=== PATIENT | female | born 1970 | race Caucasian/White ===

== ENCOUNTER 2016-10-13 22:43 | Emergency (ER) | payer OTHER ==
[~2016-10-13] VITALS: Ht 167.6 cm; Wt 56.8 kg
[~2016-10-13 22:43] MED LIST: AMOXICILLIN500 MG OR; DARVOCET-N 100100 MG OR; IMITREX IJ; LORTAB5 PO; PREVACID15 M2 OR; PROMETHAZINE12.5 MG OR; PROMETHAZINE25 MG OR; TENORMIN OR; TENORMIN25 MG OR; TENORMIN50 MG OR; TOPAMAX100 MG OR; TOPAMAX50 MG OR; TORADOL OR; ULTRAM50 M1 PO; ZOFRAN ODT4 MG OR; ZOFRAN4 M1 OR
[2016-10-13 23:20] LABS: HEMATOCRIT 37.6 % (37.0-47.0); HEMOGLOBIN 13.1 g/dl (12.0-16.0); IMMATURE GRANULOCYTES 1.4 % (0.0-1.0); MEAN CELL VOLUME 93.5 fL CALC (80.0-100.0); MEAN CORPUSCULAR HGB 32.6 pG CALC (26.0-32.0); MEAN CORPUSCULAR HGB CONC 34.8 g/L CALC (32.0-36.0); NEUT# 5.89 thou/uL (2.00-7.15); RED BLOOD COUNT 4.02 mill/uL (4.20-5.60); RED CELL DISTRI WIDTH 13.6 % (11.5-15.5)
[2016-10-13 23:37] LABS: ALBUMIN 4.3 g/dL (3.2-5.0); ALKALINE PHOSPHATASE 93 u/l (38-126); ANION GAP 20 (6-22 (CALC)); BILIRUBIN, TOTAL 0.8 mg/dL (0.0-1.4); BUN 8 mg/dL (7-17); BUN/CREATININE RATIO 14 (12-20 (CALC)); CALCIUM 8.5 mg/dL (8.4-10.2); CARBON DIOXIDE 21 mmol/l (22-30); CHLORIDE 105 mmol/l (95-108); CREATININE 0.6 mg/dL (0.5-1.0); GFR > 60 ML/MIN (>=60 (CALC)); GFR FOR AFR.AMER. > 60 ML/MIN (>=60 (CALC)); GLUCOSE 110 mg/dL (65-105); POTASSIUM 3.8 mmol/l (3.5-5.1); SGOT/AST 121 u/l (14-36); SGPT/ALT 70 u/l (9-52); SODIUM 143 mmol/l (137-146); TOTAL PROTEIN 7.8 g/dL (6.3-8.2)
[2016-10-13 23:39] LABS: ACT PARTIAL THROMBO TIME 24.7 SECONDS (20.0-32.5); PROTHROMBIN TIME 10.9 SECONDS (9.0-12.5)
[2016-10-13 23:46] LABS: ETHYL ALCOHOL 338 mg/dl (0-30)
[2016-10-14 02:56] LABS: URINE BILIRUBIN - DIPSTICK NEGATIVE (NEGATIVE); URINE BLOOD DIPSTICK SMALL (NEGATIVE); URINE CLARITY CLEAR; URINE COLOR YELLOW; URINE GLUCOSE - DIPSTICK NEGATIVE (NEGATIVE); URINE KETONE NEGATIVE (NEGATIVE); URINE LEUK ESTERASE NEGATIVE (Negative); URINE NITRITE - DIPSTICK NEGATIVE (Negative); URINE PROTEIN - DIPSTICK NEGATIVE (NEG-TRACE); URINE UROBILINOGEN - DIPSTICK 0.2 E.U./dL (0.2)
[2016-10-14 03:01] LABS: COCAINE NEGATIVE (NEGATIVE); METHADONE NEGATIVE (NEGATIVE); TETRAHYDROCANNABIONOL NEGATIVE (NEGATIVE)
[2016-10-14 03:02] LABS: BARBITURATES NEGATIVE (NEGATIVE); OXCYCODONE NEGATIVE (NEGATIVE); TRICYLIC ANTIDEPRESSANTS NEGATIVE (NEGATIVE)
[2016-10-14 03:09] LABS: URINE SQUAMOUS EPITHELIAL CELL MODERATE EPI/hpf (0-FEW)
[2016-10-14 04:40] VITALS: BP 121/74
== END 2016-10-14 04:40 | DRG 125 ==
LOC: ED 22:43
PROVIDERS: Emergency Medicine
DX: S02.32XA Fracture of orbital floor, left side, initial encounter for closed fracture (principal); K92.2 Gastrointestinal hemorrhage, unspecified; S02.40DA Maxillary fracture, left side, initial encounter for closed fracture; S01.412A Laceration without foreign body of left cheek and temporomandibular area, initial encounter; S01.81XA Laceration without foreign body of other part of head, initial encounter; F10.129 Alcohol abuse with intoxication, unspecified; Y90.8 Blood alcohol level of 240 mg/100 ml or more; S30.811A Abrasion of abdominal wall, initial encounter; V28.4XXA Motorcycle driver injured in noncollision transport accident in traffic accident, initial encounter; Y92.414 Local residential or business street as the place of occurrence of the external cause; Y93.I9 Activity, other involving external motion
CPT/HCPCS: S0164

== ENCOUNTER 2023-03-31 03:00 | Emergency (ER) | payer SELFPAY ==
[2023-03-31] VITALS (9 sets, daily range): BP systolic 131–154; BP diastolic 82–133
[~2023-03-31] VITALS: Ht 167.6 cm; Wt 49.0 kg
[2023-03-31] MEDS ORDERED: AMOX/K CLAV875 M1 PO (04:43)
[2023-03-31] MEDS ORDERED: VOLTAREN75 MG PO (04:44)
== END 2023-03-31 04:55 | disposition home or self-care (01) | DRG 605 ==
LOC: ED 03:00
DX: S90.571A Other superficial bite of ankle, right ankle, initial encounter (principal); S90.871A Other superficial bite of right foot, initial encounter; S50.872A Other superficial bite of left forearm, initial encounter; F17.210 Nicotine dependence, cigarettes, uncomplicated; W54.0XXA Bitten by dog, initial encounter

== ENCOUNTER 2023-04-29 09:45 | Emergency (ER) | payer SELFPAY ==
[2023-04-29] VITALS (13 sets, daily range): BP systolic 112–137; BP diastolic 72–86
[~2023-04-29] VITALS: Ht 167.6 cm; Wt 50.0 kg
[~2023-04-29 09:45] MED LIST changes: +AMOX/K CLAV875 M1 PO; +VOLTAREN75 MG PO
[2023-04-29] MEDS ORDERED: AMOX/K CLAV875 M1 PO (13:56)
== END 2023-04-29 14:03 | disposition home or self-care (01) | DRG 605 ==
LOC: ED 09:45
PROC: 0HQFXZZ Repair Right Hand Skin, External Approach (ICD-10-PCS; principal; 2023-04-29)
DX: S61.451A Open bite of right hand, initial encounter (principal); W54.0XXA Bitten by dog, initial encounter; Y92.007 Garden or yard of unspecified non-institutional (private) residence as the place of occurrence of the external cause; F17.200 Nicotine dependence, unspecified, uncomplicated